=== PATIENT | female | born 1985 | race Caucasian/White ===

== ENCOUNTER 2018-03-08 05:25 | Inpatient (IN) | payer OTHER ==
[2018-03-08] MEDS ORDERED: LACTATED RINGERS SOLUTION 500 ML IV ONE (06:00)
[2018-03-08] MEDS: ELECTROLYTE-148 SOLN 1,000 ML IV SCH (07:50)
--- NOTE | 2018-03-08 08:12 | HP ---
Past Medical History - Primary Care Physician PCP:: Kenton Price - Admission Chief Complaint: 38.1 week, labor History of Present Illness: 32 yo 38,1 weeks in labor, cx 4 cm ,80 bx -2 mi, fhr cat 1, regular contraction q 2 min , efw 8 lb History Source: Patient Limitations to Obtaining History: No Limitations - Past Medical History Gastrointestinal: Yes: Constipation ...: 2 ...Para: 1 ...Term: 1 ...: 0 ...Spon : 0 ...Induced : 0 ... Weeks Gestation by Dates: 38.1 ...EDC by Dates: 03/21/18 Heme/Onc: Yes: Anemia (rx po iron & pnv) - Past Surgical History Past Surgical History: Yes: None Hx Myomectomy: No Hx Transabdominal Cerclage: No - Smoking History Smoking history: Never smoked Have you smoked in the past 12 months: No - Alcohol/Substance Use Hx Alcohol Use: No History of Substance Use: reports: None - Social History Usual Living Arrangement: Yes: With Spouse History of Recent Travel: No Home Medications - Allergies Allergies/Adverse Reactions: Allergies Allergy/AdvReac Type Severity Reaction Status Date / Time No Known Allergies Allergy Verified 03/08/18 06:38 - Home Medications Home Medications: Ambulatory Orders Vitamins (Sjr) - 1 tab PO DAILY 01/03/18 Iron,Carb/Vit C/Vit B12/Folic [Iron 100 Plus Tablet] 1 tab PO BID 03/08/18 Review of Systems - Review of Systems Constitutional: reports: No Symptoms Eyes: reports: No Symptoms HENT: reports: No Symptoms Neck: reports: No Symptoms Cardiovascular: reports: No Symptoms Respiratory: reports: No Symptoms Gastrointestinal: reports: No Symptoms Genitourinary: reports: No Symptoms Breasts: reports: No Symptoms Reported Musculoskeletal: reports: No Symptoms Integumentary: reports: No Symptoms Neurological: reports: No Symptoms Endocrine: reports: No Symptoms Hematology/Lymphatic: reports: No Symptoms Psychiatric: reports: No Symptoms Physical Exam - Maternity Vital Signs: Vital Signs Temperature 97.8 F 03/08/18 07:45 Pulse Rate 94 H 03/08/18 07:45 Respiratory Rate 18 03/08/18 07:45 Blood Pressure 123/74 03/08/18 07:45 O2 Sat by Pulse Oximetry (%) Constitutional: Yes: Well Nourished, No Distress, Calm Eyes: Yes: WNL, Conjunctiva Clear, EOM Intact HENT: Yes: WNL, Atraumatic, Normocephalic Neck: Yes: WNL, Supple, Trachea Midline Cardiovascular: Yes: WNL, Regular Rate and Rhythm Breast(s): Yes: WNL - Abdominal Exam/OB Fundal Height: 40 Number of Fetuses: Single Presentation: Vertex Contractions: Yes Regularity: Regular Intensity: Mod/Strong Monitor Mode: External Heart Rate Location: [facility] Category: I Accelerations: Uniform Decelerations: None - Vaginal Exam/OB Vaginal Bleediing: No Speculum Exam: No Dilatation (cm): 4 cm Effacement (%): 80 Amniotic Membrane Status: Intact Presentation: Vertex/Position Station: -2 - Physical Exam Musculoskeletal: Yes: WNL Extremities: Yes: WNL Edema: LLE: Trace, RLE: Trace Integumentary: Yes: WNL ...Motor Strength: WNL Psychiatric: Yes: WNL Hemorrhage Risk Assessment - Risk Factors Medium Risk Factors: Yes: None High Risk Factors: Yes: None Risk Score: 1 Risk Level: Medium Risk Problem List - Problems (1) with 38 completed weeks gestation Code(s): Z3A.38 - 38 WEEKS GESTATION OF (2) Labor established Code(s): FAC6583 - (3) Labor established Code(s): HES9756 - Assessment/Plan admit, fhm, pain management
[2018-03-08 08:29] VITALS: BMI 27.8
[2018-03-08] MEDS ORDERED: NALOXONE HCL 0.4 MG/ML VIAL IVPUSH PRN (09:03)
[2018-03-08 09:05] LABS: BASO % 0.5 % (0-2.0); EOS % 0.7 % (0-4.5); HEMATOCRIT 32.8 % (32.4-45.2); HEMOGLOBIN 10.7 GM/dL (10.7-15.3); MCH 24.1 pg (25.7-33.7); MCHC 32.6 g/dl (32.0-36.0); MEAN CELL VOLUME 73.7 fl (80-96); MEAN PLT VOLUME 7.3 fl (7.5-11.1); MONO % 5.3 % (3.8-10.2); NEUT % 79.5 % (42.8-82.8); PLATELET COUNT 196 K/MM3 (134-434); RBC 4.44 M/mm3 (3.60-5.2); RDW 16.6 % (11.6-15.6); WHITE BLOOD COUNT 9.6 K/mm3 (4.0-10.0)
[2018-03-08 09:15] LABS: ANION GAP 12 MMOL/L (8-16); BLOOD UREA NITROGEN 8 mg/dL (7-18); CALCIUM 8.2 mg/dL (8.5-10.1); CHLORIDE 105 mmol/L (98-107); CO2 22 mmol/L (21-32); CREATININE 0.4 mg/dL (0.55-1.3); GLUCOSE,RANDOM 87 mg/dL (74-106); POTASSIUM 3.6 mmol/L (3.5-5.1); SODIUM 139 mmol/L (136-145)
[2018-03-08] MEDS ORDERED: FENTANYL/BUPIVACAINE/NS/PF - PCEA - 50 ML DISP.SYRIN EP SCH (09:15)
[2018-03-08 09:34] LABS: INR 0.97 (0.83-1.09); PROTHROMBIN TIME (PATIENT) 11.4 SEC (9.7-13.0)
[2018-03-08 09:36] LABS: ACTIVATED PTT 26.9 SECONDS (25.2-36.5)
[2018-03-08] MEDS ORDERED: FENTANYL/BUPIVACAINE/NS/PF - PCEA - 50 ML DISP.SYRIN EP ONE ×2 (09:41→14:31)
[2018-03-08] MEDS ORDERED: OXYTOCIN 30 UNITS in 0.9% NS 30 UNIT/500 ML INFUS.BAG IVPB ONE (14:29)
[2018-03-08] MEDS: OXYTOCIN 30 UNITS in 0.9% NS 30 UNIT/500 ML INFUS.BAG IVPB SCH (14:30)
[2018-03-08] MEDS ORDERED: ACETAMINOPHEN 325 MG TABLET (FP) ONE (15:00)
[2018-03-08] MEDS ORDERED: BUPIVACAINE HCL/PF 0.25% (2.5MG/ML) 10 ML VIAL ONE (15:17)
[2018-03-08] MEDS ORDERED: ACETAMINOPHEN 325 MG TABLET (FP) PO ONE (15:19)
--- NOTE | 2018-03-08 15:22 | PN ---
Progress Note (short form) - Note Progress Note: 219 pm cx 7 cm 100 vx -1 AROM ,clear , fhr lalito 1 irregular contraction, pitocin rba discussed ., has headache, bp normal tylenol prn Problem List - Problems (1) with 38 completed weeks gestation Code(s): Z3A.38 - 38 WEEKS GESTATION OF (2) Labor established Code(s): KTZ6379 - (3) Labor established Code(s): [id number] -
[2018-03-08] MEDS ORDERED: OXYTOCIN 20 UNITS in 0.9% NS 20 UNIT/1,000 ML INFUS.BAG IV ONE ×2 (15:51→19:16)
[2018-03-08] MEDS: OXYTOCIN 20 UNITS in 0.9% NS 20 UNIT/1,000 ML INFUS.BAG IV SCH (17:15)
[2018-03-08] MEDS ORDERED: BENZOCAINE 28 GM HEMORRHOIDAL OINTMENT TP PRN (17:36)
[2018-03-08] MEDS ORDERED: BENZOCAINE 20% 57 GM BOTTLE TP PRN (17:36)
[2018-03-08] MEDS ORDERED: BISACODYL 10 MG SUPP.RECT RC PRN (17:36)
[2018-03-08] MEDS ORDERED: METHYLERGONOVINE MALEATE 0.2 MG/1 ML AMP IM PRN (17:36)
[2018-03-08] MEDS ORDERED: WITCH HAZEL 50% (TUCKS) 40 PAD/JAR PAD TP PRN (17:36)
[2018-03-08] MEDS ORDERED: D5W-LR W/ 20 UNITS OXYTOCIN 20 UNIT/1,000 ML INFUS.BAG IV SCH (17:45)
[2018-03-08] MEDS: IBUPROFEN 600 MG TABLET (FP) PO PRN (21:30)
[2018-03-08] MEDS: ACETAMINOPHEN 325 MG TABLET (FP) PO PRN (21:31)
[2018-03-09] MEDS: ACETAMINOPHEN 325 MG TABLET (FP) PO PRN ×3 (03:11→20:46)
[2018-03-09] MEDS: IBUPROFEN 600 MG TABLET (FP) PO PRN ×3 (03:12→20:45)
[2018-03-09] MEDS: FERROUS SO4 325 MG TABLET (FP) PO SCH ×2 (08:01→17:24)
[2018-03-09 08:26] LABS: BASO % 0.7 % (0-2.0); EOS % 1.3 % (0-4.5); HEMATOCRIT 32.4 % (32.4-45.2); HEMOGLOBIN 10.6 GM/dL (10.7-15.3); LYMPH % 14.5 % (8-40); MCH 24.4 pg (25.7-33.7); MCHC 32.8 g/dl (32.0-36.0); MEAN CELL VOLUME 74.5 fl (80-96); MEAN PLT VOLUME 6.7 fl (7.5-11.1); MONO % 4.8 % (3.8-10.2); NEUT % 78.7 % (42.8-82.8); PLATELET COUNT 186 K/MM3 (134-434); RBC 4.35 M/mm3 (3.60-5.2); RDW 16.6 % (11.6-15.6); WHITE BLOOD COUNT 8.5 K/mm3 (4.0-10.0)
[2018-03-09] MEDS: PRENATAL VITAMINS W/ FOLIC ACID TABLET (FP) PO SCH (10:31)
--- NOTE | 2018-03-09 11:18 | PN ---
Progress Note (short form) - Note Progress Note: ppd 1 doing well, no c/o CBC, BMP 03/09/18 07:00 03/08/18 08:05 Last Vital Signs Temp Pulse Resp BP Pulse Ox 97.8 F 85 16 97/61 98 03/09/18 09:29 03/09/18 09:29 03/09/18 09:29 03/09/18 09:29 03/08/18 18:30 abdomen soft, no distension, no cva uterus irm lochia mild plan ambulate , plan for d/c home in am Problem List - Problems (1) with 38 completed weeks gestation Code(s): Z3A.38 - 38 WEEKS GESTATION OF (2) Labor established Code(s): [id number] - (3) Labor established Code(s): [id number] -
[2018-03-09] MEDS: LACTATED RINGERS SOLUTION 1,000 ML IV SCH (19:44)
[2018-03-09] MEDS: OXYTOCIN 20 UNITS in 0.9% NS 20 UNIT/1,000 ML INFUS.BAG IV SCH (19:45)
[2018-03-09] MEDS: OXYTOCIN 30 UNITS in 0.9% NS 30 UNIT/500 ML INFUS.BAG IVPB SCH (19:45)
[2018-03-09] MEDS: ELECTROLYTE-148 SOLN 1,000 ML IV SCH (19:45)
[2018-03-09] MEDS ORDERED: SIMETHICONE 80 MG TAB.CHEW (FP) PO PRN (20:28)
[2018-03-09] MEDS ORDERED: SENNOSIDES/DOCUSATE COMBO (SENNA PLUS) TABLET (UD) PO PRN (22:00)
[2018-03-10] MEDS: ACETAMINOPHEN 325 MG TABLET (FP) PO PRN ×2 (04:37→12:05)
[2018-03-10] MEDS: IBUPROFEN 600 MG TABLET (FP) PO PRN ×2 (04:38→12:05)
[2018-03-10] MEDS: FERROUS SO4 325 MG TABLET (FP) PO SCH (07:39)
[2018-03-10 08:06] VITALS: BP 99/60; PULSE 80; TEMP 97.8
[2018-03-10] MEDS: PRENATAL VITAMINS W/ FOLIC ACID TABLET (FP) PO SCH (10:45)
== END 2018-03-10 13:45 | disposition home or self-care (01) | DRG 560 ==
LOC: JDEL 05:25 → JLDR 07:40 → J3W 19:44
PROVIDERS: ADMIT Obstetrics & Gynecology; ATTEND Obstetrics & Gynecology
PROC: 10E0XZZ Delivery of Products of Conception, External Approach (ICD-10-PCS; principal; 2018-03-08)
DX: O80 Encounter for full-term uncomplicated delivery (principal); Z3A.38 38 weeks gestation of pregnancy; Z37.0 Single live birth
CPT/HCPCS: 36415; 59025; 59409; 80048; 85025; 85610; 85730; 86593; 86850; 86900; 86901